=== PATIENT | male | born 1995 | race Hispanic/Latino ===

== ENCOUNTER 2019-08-05 05:45 | Emergency (ER) | payer SELFPAY ==
[2019-08-05 06:38] LABS: BASOPHILS % (AUTO) 0.7 % (0.0-5.0); EOSINOPHILS % (AUTO) 0.9 % (0.0-8.0); HEMATOCRIT 46.2 % (42-54); LYMPHOCYTES % (AUTO) 30.6 % (21.0-51.0); MEAN CORPUSCULAR HEMOGLOBIN 30.2 pg (27.0-33.0); MEAN CORPUSCULAR HGB CONC 34.1 g/dL (32.0-36.0); MEAN CORPUSCULAR VOLUME 88.4 fL (79-99); MONOCYTES % (AUTO) 4.2 % (3.0-13.0); NEUTROPHILS % (AUTO) 63.6 % (40.0-77.0); NUCLEATED RED BLOOD CELLS 0.2 % (0.0-0.19); PLATELET COUNT (AUTO) 270 K/uL (130-400); RED BLOOD CELL COUNT(AUTO) 5.23 MIL/uL (4.50-6.20); RED CELL DISTRIBUTION WIDTH 13.3 % (11.0-15.5); WHITE BLOOD COUNT (AUTO) 7.1 K/uL (4.8-10.8)
[2019-08-05 07:00] LABS: ALBUMIN 4.1 g/dL (3.5-5.0); BILIRUBIN,TOTAL 0.2 mg/dL (0.2-1.0); TOTAL PROTEIN, SERUM 7.8 g/dL (6.0-8.3)
[2019-08-05] MEDS ORDERED: IOHEXOL-350 75 ML VIAL IV ONE (07:13)
[2019-08-05] MEDS ORDERED: SODIUM CHLORIDE 0.9% 1000ML 1,000 ML IV ONE (08:00)
== END 2019-08-05 08:59 | disposition home or self-care (01) ==
LOC: EDH 05:45
DX: F10.10 Alcohol abuse, uncomplicated (principal); R10.31 Right lower quadrant pain; Y90.9 Presence of alcohol in blood, level not specified
CPT/HCPCS: 36415; 74177; 80053; 83690; 85025; 99285; J7030; Q9967

== ENCOUNTER 2020-05-07 23:00 | Emergency (ER) | payer BC, OTHER | END 2020-05-08 02:03 | disposition left against medical advice (07) | LOC: EDH 23:00 | DX: R45.851 Suicidal ideations (principal); F10.10 Alcohol abuse, uncomplicated; Z53.29 Procedure and treatment not carried out because of patient's decision for other reasons | CPT/HCPCS: 99281 ==

== ENCOUNTER 2021-03-04 02:58 | Emergency (ER) | payer BC ==
[2021-03-04] MEDS ORDERED: NALOXONE HCL 0.4 MG/1 ML ML ONE (03:52)
[2021-03-04 04:30] LABS: BASOPHILS % (AUTO) 0.6 % (0.0-5.0); EOSINOPHILS % (AUTO) 3.8 % (0.0-8.0); HEMATOCRIT 43.7 % (42-54); LYMPHOCYTES % (AUTO) 37.5 % (21.0-51.0); MEAN CORPUSCULAR HEMOGLOBIN 28.6 pg (27.0-33.0); MEAN CORPUSCULAR VOLUME 89.4 fL (79-99); MONOCYTES % (AUTO) 4.7 % (3.0-13.0); PLATELET COUNT (AUTO) 276 K/uL (130-400); RED BLOOD CELL COUNT(AUTO) 4.89 MIL/uL (4.50-6.20); RED CELL DISTRIBUTION WIDTH 13.4 % (11.0-15.5); WHITE BLOOD COUNT (AUTO) 7.7 K/uL (4.8-10.8)
[2021-03-04 04:37] LABS: ALBUMIN 3.7 g/dL (3.5-5.0); BILIRUBIN,TOTAL 0.2 mg/dL (0.2-1.0); TOTAL PROTEIN, SERUM 6.9 g/dL (6.0-8.3)
[2021-03-04] MEDS ORDERED: SODIUM CHLORIDE 0.9% 1000ML 1,000 ML IV ONE (07:34)
[2021-03-04] MEDS ORDERED: ORPHENADRINE CITRATE 30 MG/ML ML ONE (07:34)
[2021-03-04 08:36] LABS: AMPHET/METH SCREEN,URINE NEGATIVE (NEGATIVE); APPEARANCE,URINE CLEAR (CLEAR); BARBITURATE SCREEN, URINE NEGATIVE (NEGATIVE); BENZODIAZEPINES SCREEN,URINE POSITIVE (NEGATIVE); BILIRUBIN,URINE NEGATIVE (NEGATIVE); CANNABINOID SCREEN,URINE POSITIVE (NEGATIVE); COCAINE SCREEN,URINE POSITIVE (NEGATIVE); COLOR,URINE YELLOW (YELLOW); GLUCOSE, URINE (UA) NEGATIVE (NEGATIVE); KETONES,URINE 15 mg/dL (NEGATIVE); LEUKOCYTE ESTERASE ,URINE NEGATIVE (NEGATIVE); NITRATE,URINE NEGATIVE (NEGATIVE); OCCULT BLOOD,URINE NEGATIVE (NEGATIVE); OPIATE SCREEN,URINE NEGATIVE (NEGATIVE); PHENCYCLIDINE SCREEN,URINE NEGATIVE (NEGATIVE); PROTEIN,URINE NEGATIVE (NEGATIVE); UROBILINOGEN,URINE 0.2 mg/dL (0.2-1.0)
[2021-03-04 09:08] LABS: BACTERIA,URINE Rare /HPF (None Seen); RBC,URINE 0-1 /HPF (0-1); SQUAMOUS EPITHELIAL CELL,UR Rare /HPF (0-2); WBC,URINE 0-1 /HPF (0-1)
[2021-03-04 09:09] LABS: URIC ACID CRYSTALS,URINE Many /LPF (None Seen)
[2021-03-04] MEDS ORDERED: IOHEXOL-350 75 ML VIAL IV ONE (09:46)
== END 2021-03-04 10:50 | disposition home or self-care (01) ==
LOC: EDH 02:58
DX: F10.129 Alcohol abuse with intoxication, unspecified (principal); F14.129 Cocaine abuse with intoxication, unspecified; F11.129 Opioid abuse with intoxication, unspecified; T42.4X1A Poisoning by benzodiazepines, accidental (unintentional), initial encounter; F41.9 Anxiety disorder, unspecified; Z72.0 Tobacco use; Y92.89 Other specified places as the place of occurrence of the external cause
CPT/HCPCS: 36415; 70450; 74177; 80053; 80305; 81001; 85025; 96361; 96374; 99285; J2310; J2360; J7030; Q9967